=== PATIENT | female | born 1995 | race Caucasian/White ===

== ENCOUNTER 2016-12-05 08:56 | Emergency (ER) | payer OTHER ==
[~2016-12-05] VITALS: Ht 160 cm; Wt 52.2 kg
[2016-12-05 09:02] VITALS: BP_SYST 102
[2016-12-05 09:39] LABS: BASOPHILS % (AUTO) 0.2 % (0.0-2.0); EOSINOPHILS # (AUTO) 0.3 K/uL (0.0-0.4); EOSINOPHILS % (AUTO) 4.1 % (0.0-4.0); HEMATOCRIT 40.6 % (36-48); HEMOGLOBIN 13.7 g/dL (12.0-16.0); LYMPHOCYTES # (AUTO) 1.1 K/uL (1.0-5.5); LYMPHOCYTES % (AUTO) 12.8 % (20.5-51.5); MEAN CORPUSCULAR HEMOGLOBIN 29 pg (27-31); MEAN CORPUSCULAR HGB CONC 34 % (32-36); MEAN CORPUSCULAR VOLUME 87 fL (79.0-98.0); MONOCYTES # (AUTO) 0.6 K/uL (0.0-1.0); MONOCYTES % (AUTO) 6.7 % (1.7-9.3); NEUTROPHILS # (AUTO) 6.4 K/uL (1.8-7.7); NEUTROPHILS % (AUTO) 76.2 % (40.0-70.0); PLATELET COUNT (AUTO) 211 K/uL (130-430); RED BLOOD CELL COUNT(AUTO) 4.67 MIL/uL (4.2-6.2); RED CELL DISTRIBUTION WIDTH 12.8 % (9.0-15.0); WHITE BLOOD COUNT (AUTO) 8.4 K/uL (4.5-11.0)
[2016-12-05 09:50] LABS: CALCIUM 8.5 mg/dL (8.4-11.0); CREATININE 0.68 mg/dL (0.55-1.30); POTASSIUM 3.7 mmol/L (3.5-5.1)
[2016-12-05 09:55] LABS: ALBUMIN 3.8 g/dL (3.4-4.8); TOTAL BILIRUBIN 1.8 mg/dL (0.0-1.0); TOTAL PROTEIN, SERUM 7.5 g/dL (6.4-8.3)
[2016-12-05] MEDS ORDERED: IOHEXOL 100 ML IV ONE (11:33)
[2016-12-05 12:09] LABS: BILIRUBIN,URINE NEGATIVE (NEGATIVE); CLARITY/URINE SL CLOUDY (CLEAR); COLOR,URINE YELLOW (YELLOW); GLUCOSE,URINE NEGATIVE (NEGATIVE); KETONES,URINE 1+ (NEGATIVE); LEUKOCYTE ESTERASE ,URINE 2+ (NEGATIVE); NITRITE, URINE POSITIVE (NEGATIVE); PROTEIN URINE NEGATIVE (NEGATIVE); UROBILINOGEN,URINE 0.2 (0.2-1.0)
[2016-12-05 12:13] LABS: BLOOD, URINE TRACE (NEGATIVE)
[2016-12-05 12:40] LABS: BACTERIA,URINE MODERATE /HPF (None Seen); MUCUS,URINE 1+ /LPF (None Seen)
[2016-12-05 12:42] VITALS: BP_SYST 110
== END 2016-12-05 12:42 | disposition home or self-care (01) ==
LOC: SED 08:56
DX: N39.0 Urinary tract infection, site not specified (principal); K20.8 Other esophagitis; Z91.018 Allergy to other foods
CPT/HCPCS: 36415; 74177; 80053; 81000; 82150; 83690; 84703; 85025; 87086; 99285; Q9967; 87186-TC

== ENCOUNTER 2017-07-01 09:35 | Emergency (ER) | payer OTHER ==
[~2017-07-01] VITALS: Ht 160 cm; Wt 49.9 kg
[2017-07-01 09:37] VITALS: BP_SYST 111
[2017-07-01] MEDS ORDERED: CYCLOBENZAPRINE HCL 10 MG TABLET (FLEXERIL) PO ONE (10:00)
[2017-07-01] MEDS ORDERED: ASPIRIN 325 MG TABLET PO ONE (10:00)
[2017-07-01] MEDS ORDERED: ONDANSETRON HCL 4 MG/2 ML VIAL IVP ONE (10:00)
[2017-07-01] MEDS ORDERED: KETOROLAC TROMETHAMINE 30 MG VIAL IM ONE (10:00)
[2017-07-01] MEDS ORDERED: NACL 0.9% 1,000 ML IV ONE (10:00)
[2017-07-01 10:12] LABS: BILIRUBIN,URINE 1+ (NEGATIVE); BLOOD, URINE NEGATIVE (NEGATIVE); CLARITY/URINE CLOUDY (CLEAR); COLOR,URINE YELLOW (YELLOW); GLUCOSE,URINE NEGATIVE (NEGATIVE); KETONES,URINE 3+ (NEGATIVE); LEUKOCYTE ESTERASE ,URINE 1+ (NEGATIVE); NITRITE, URINE POSITIVE (NEGATIVE); PROTEIN URINE TRACE (NEGATIVE); UROBILINOGEN,URINE 0.2 (0.2-1.0)
[2017-07-01 10:19] LABS: BACTERIA,URINE MANY /HPF (None Seen); MUCUS,URINE 1+ /LPF (None Seen); RBC,URINE 0-3 /HPF (0-3); WBC,URINE 20-50 /HPF (0-3)
[2017-07-01 10:55] VITALS: BP_SYST 111
== END 2017-07-01 10:55 | disposition home or self-care (01) ==
LOC: SED 09:35
DX: S39.012A Strain of muscle, fascia and tendon of lower back, initial encounter (principal); N39.0 Urinary tract infection, site not specified; X58.XXXA Exposure to other specified factors, initial encounter; Y93.89 Activity, other specified; Y92.89 Other specified places as the place of occurrence of the external cause; Y99.8 Other external cause status
CPT/HCPCS: 81000; 81025; 87086; 87186; 93005; 96372; 99285; J1885